=== PATIENT | male | born 1985 | race Caucasian/White ===

== ENCOUNTER 2017-01-12 15:38 | Emergency (ER) | payer SELFPAY ==
[~2017-01-12] VITALS: Ht 180.3 cm; Wt 113.6 kg
[2017-01-12] MEDS ORDERED: AZITHROMYCIN 250 MG TABLET PO ONE (16:15)
[2017-01-12] MEDS ORDERED: CefTRIAXone SODIUM 1 GM/VIAL IM ONE (16:15)
[2017-01-12] MEDS ORDERED: LIDOCAINE HCL/PF 1% 2 ML VIAL IM ONE (16:15)
[2017-01-12 16:54] VITALS: BP 134/80
[2017-01-15 02:13] LABS: GC DNA N.A. AMPLIFY Negative (Negative)
== END 2017-01-12 16:55 | disposition home or self-care (01) ==
LOC: EMS 15:40
DX: N48.89 Other specified disorders of penis (principal); R03.0 Elevated blood-pressure reading, without diagnosis of hypertension
CPT/HCPCS: 87491; 87591; 96372; 99284; J0696; J3490

== ENCOUNTER 2017-01-15 16:53 | Emergency (ER) | payer SELFPAY ==
[~2017-01-15] VITALS: Ht 180.3 cm; Wt 113.6 kg
[2017-01-15 16:55] VITALS: BP 164/98
== END 2017-01-15 18:41 | disposition home or self-care (01) ==
LOC: EMS 16:54
DX: R30.0 Dysuria (principal)
CPT/HCPCS: 99282

== ENCOUNTER 2017-01-21 12:05 | Emergency (ER) | payer SELFPAY ==
[~2017-01-21] VITALS: Ht 180.3 cm; Wt 113.6 kg
[2017-01-21 12:16] VITALS: BP 145/88
== END 2017-01-21 13:03 | disposition home or self-care (01) ==
LOC: EMS 12:06
DX: N48.89 Other specified disorders of penis (principal); R03.0 Elevated blood-pressure reading, without diagnosis of hypertension
CPT/HCPCS: 99283